=== PATIENT | male | born 1995 | race Caucasian/White ===

== ENCOUNTER 2017-12-24 03:26 | Inpatient (IN) | payer MEDICAID ==
[2017-12-24 03:40] LABS: PLATELET COUNT 221 10^3/uL (150-400)
[2017-12-24] MEDS ORDERED: IOPAMIDOL (ISOVUE-300) 100 ML BTL ONE (03:42)
[2017-12-24 03:48] LABS: INR 1.19 (0.83-1.16); PROTIME(PATIENT) 15.3 SEC (12.0-15.0)
--- NOTE | 2017-12-24 04:11 | EDPHY ---
H & P Stated Complaint: CODE Time Seen by Provider: 12/24/17 03:35 HPI/ROS: HPI The patient presents with cardiac arrest, [facility]. He was picked up in a police Paddy wagon for alcohol intoxication. He was at the arc for about 5 min and then at a cardiac arrest. CPR was started in the field by [facility] staff. His initial rhythm was a sinus tachycardia. He required epinephrine x2 and Narcan x2. He was intubated with an 8 0 ET 2 and eventually had return of spontaneous circulation with tachycardia and normal blood pressure. He reportedly did not have any seizure, vomiting. REVIEW OF SYSTEMS Unable to obtain PMHx: Unable to obtain given patient acuity Soc Hx: Unable to obtain, concern for alcohol use tonight PHYSICAL General Appearance: Intubated with no purposeful movements Eyes: Pupils midline and nonreactive ENT, Mouth: Mucous membranes moist Respiratory: Breath sounds present when bagged Cardiovascular: Tachycardic rate and normal rhythm Gastrointestinal: Abdomen is soft and non-tender, no masses, bowel sounds normal Neurological: He occasionally takes a breath, he does not move his extremities , he is not rigid Skin: Warm and dry, some abrasions on his knees, Band-Aids on both of his nipples Musculoskeletal: C-collar in place Extremities: symmetrical Source: EMS Exam Limitations: Clinical condition, Physical impairment - Personal History Current Tetanus Diphtheria and Acellular Pertussis (TDAP): Unsure - Medical/Surgical History Hx Asthma: No Hx Chronic Respiratory Disease: No Hx Diabetes: No Hx Cardiac Disease: No Hx Renal Disease: No Hx Cirrhosis: No Hx Alcoholism: No Hx HIV/AIDS: No Hx Splenectomy or Spleen Trauma: No Other PMH: none - Social History Smoking Status: Current every day smoker Constitutional: Initial Vital Signs Heart Rate 107 H 12/24/17 03:26 Respiratory Rate 12 12/24/17 03:26 Blood Pressure 136/86 H 12/24/17 03:26 O2 Sat (%) 100 12/24/17 03:26 O2 Delivery Mode Ventilator O2 (L/minute) 36.4 Allergies/Adverse Reactions: bees Allergy (Intermediate, Uncoded 12/24/17 03:46) swelling Home Medications: Medication Instructions Recorded Cephalexin [Keflex (RX)] 500 mg PO QID 5 Days cap 12/18/15 Hydrocodone/APAP 5/325 [Anderson 1 - 2 tab PO Q4H PRN #10 tab 04/18/16 5/325] Ibuprofen [Motrin (*)] 800 mg PO Q6-8PRN #30 tab 04/18/16 Ondansetron HCl [Zofran] 4 mg PO Q4-6PRN PRN #10 tablet 04/18/16 Medical Decision Making - Diagnostics EKG Interpretation: EKG: Complete interpretation has been separately recorded in the [facility] archive. Summary impression: Normal sinus rhythm, early repol pattern Imaging Results: Chest x-ray single view shows ET tube in good position, no pneumothorax, no effusion, no cardiomegaly, interpreted by me, radiology interpretation is pending. CT head and C-spine without contrast show no acute injuries. CT chest abdomen pelvis with IV contrast demonstrates multifocal airspace consolidation likely aspiration, discussed with Dr. Robb of Radiology. Imaging: I viewed and interpreted images myself Procedures: CENTRAL LINE WITH US GUIDANCE Procedure: Ultrasound guidance. Using the linear probe covered in a sterile sheath, a short axis of the vein was obtained. The vein was completely compressible and was identified as separate from the adjacent non-compressible arterial structure. Under real- time guidance, the introducer needle was observed up to the vein, and then punctured it. Indication: Hypothermia protocol. Risks, benefits, alternatives were not discussed with the patient including but not limited to bleeding, infection, vascular injury, and collapsed lung and consent obtained because of his critical condition. A timeout was observed. Full maximal sterile barrier technique was used including cap, gown, sterile gloves, large sheet, hand washing and chlorhexidine prep. The area was anesthetized with 1% lidocaine. A sole catheter was placed in the right femoral vein using standard Seldinger technique. There were no complications. Blood return low pressure, dark blood. Patient tolerated procedure well. . Xray was interpreted by myself. The procedure was performed by myself. Differential Diagnosis: 22-year-old male brought in by ambulance emergently from the [facility] [place] for cardiac arrest. Initial rhythm is PEA with a narrow past rhythm. The patient responded to epinephrine, Narcan, intubation and CP R. He arrives with return of spontaneous circulation by paramedics. He had minimal down time given CPR was started in the field. It seems that he was intoxicated and picked up by the police and then quickly decompensated without any obvious trauma. In the emergency department, ET tube was confirmed with chest x-ray, IV line was established. I-STAT was performed and did show mild hypokalemia and he was given additional potassium. I placed a femoral line for hypothermia protocol. Anderson was placed. Bedside ultrasound was performed with no evidence of pericardial effusion or significant right heart strain. Patient's imaging studies were unremarkable. The cause of his arrest is not entirely clear. He does have an elevated alcohol level and urine toxicology positive for amphetamines. This could be part of his presentation. I have discussed the case with Dr. Chacon and we will admit him to the ICU. Critical Care Time: CRITICAL CARE Critical care time spent by me, Dr. Ac, exclusively with this patient was 75 minutes, exclusive of PA time and exclusive of procedures. The organ system at risk was cardiac, neuro and I gave IV fluids, sedation, central line placement, cooling protocol, emergently transfer the patient to the ICU to prevent worsening of the patients condition. - Data Points Laboratory Results: Laboratory Results 12/24/17 03:11 12/24/17 03:11 12/24/17 12/24/17 12/24/17 04:31 04:22 03:31 WBC RBC Hgb POC Hgb Hct POC Hct MCV MCH MCHC RDW Plt Count MPV Neut % (Auto) Lymph % (Auto) Nolan % (Auto) Eos % (Auto) Baso % (Auto) Nucleat RBC Rel Count Absolute Neuts (auto) Absolute Lymphs (auto) Absolute Monos (auto) Absolute Eos (auto) Absolute Basos (auto) Absolute Nucleated RBC Immature Gran % Seg Neutrophils % Band Neutrophils % Lymphocytes % Monocytes % Eosinophils % Basophils % Metamyelocytes % Myelocytes % Promyelocytes % Blast Cells % Immature Gran # Absolute Seg Neuts Absolute Band Neuts Absolute Lymphocytes Absolute Monocytes Absolute Eosinophils Absolute Basophils Absolute Metamyelocyte Absolute Myelocytes Absolute Promyelocytes Absolute Plasma Cells Nucleated RBCs Atypical Lymphocytes Absolute Blast Cells Plasma Cells % Platelet Estimate Smear Review By PT INR APTT D-Dimer Puncture Site NONE GIVEN Patient Temperature 36.7 DEGREES DEGREES pCO2 33 mmHg L mmHg (34-38) pO2 307 mmHg H mmHg (65-75) Total CO2 14 mEq/L L mEq/L (23-27) ABG pH 7.22 L (7.35-7.45) ABG PO2/FiO2 Ratio 380 RATIO RATIO ABG HCO3 13 mEq/L L mEq/L (22-26) ABG O2 Saturation 99 % H % (92-95) ABG Base Excess -13.8 mEq/L L mEq/L (-2.5-2.5) O2 Concentration % 80 % % (0-100) Actual Respiration Rate 12 SIMV YES Tidal Volume 400 End Tidal CO2 24 PEEP 5 Pressure Support 7 POC Sodium Sodium POC Potassium Potassium POC Chloride Chloride Carbon Dioxide Anion Gap POC BUN BUN Creatinine POC Creatinine Estimated GFR Glucose POC Glucose Calcium Phosphorus Total Bilirubin Icterus Index AST Lactate Dehydrogenase CK-MB (CK-2) Fraction POC Troponin I 0.00 ng/mL ng/mL (0.00-0.08) Albumin Urine Opiates Screen NEGATIVE (NEGATIVE) Urine Barbiturates NEGATIVE (NEGATIVE) Ur Phencyclidine Scrn NEGATIVE (NEGATIVE) Ur Amphetamine Screen NON-NEGATIVE H (NEGATIVE) U Benzodiazepines Scrn NEGATIVE (NEGATIVE) Urine Cocaine Screen NEGATIVE (NEGATIVE) U Marijuana (THC) Screen NEGATIVE (NEGATIVE) Ethyl Alcohol 12/24/17 12/24/17 12/24/17 03:31 03:11 03:11 WBC RBC Hgb POC Hgb 17.3 gm/dL gm/dL (13.7-17.5) Hct POC Hct 51 % % (40-51) MCV MCH MCHC RDW Plt Count MPV Neut % (Auto) Lymph % (Auto) Nolan % (Auto) Eos % (Auto) Baso % (Auto) Nucleat RBC Rel Count Absolute Neuts (auto) Absolute Lymphs (auto) Absolute Monos (auto) Absolute Eos (auto) Absolute Basos (auto) Absolute Nucleated RBC Immature Gran % Seg Neutrophils % Band Neutrophils % Lymphocytes % Monocytes % Eosinophils % Basophils % Metamyelocytes % Myelocytes % Promyelocytes % Blast Cells % Immature Gran # Absolute Seg Neuts Absolute Band Neuts Absolute Lymphocytes Absolute Monocytes Absolute Eosinophils Absolute Basophils Absolute Metamyelocyte Absolute Myelocytes Absolute Promyelocytes Absolute Plasma Cells Nucleated RBCs Atypical Lymphocytes Absolute Blast Cells Plasma Cells % Platelet Estimate Smear Review By PT 15.3 SEC H SEC (12.0-15.0) INR 1.19 H (0.83-1.16) APTT 32.6 SEC SEC (23.0-38.0) D-Dimer 0.65 ug/mLFEU H ug/mLFEU (0.00-0.50) Puncture Site Patient Temperature pCO2 pO2 Total CO2 ABG pH ABG PO2/FiO2 Ratio ABG HCO3 ABG O2 Saturation ABG Base Excess O2 Concentration % Actual Respiration Rate SIMV Tidal Volume End Tidal CO2 PEEP Pressure Support POC Sodium 144 mEq/L mEq/L (135-145) Sodium 144 mEq/L mEq/L (135-145) POC Potassium 2.4 mEq/L L* mEq/L (3.3-5.0) Potassium 3.0 mEq/L L mEq/L (3.3-5.0) POC Chloride 104 mEq/L mEq/L (97-110) Chloride 107 mEq/L mEq/L (97-110) Carbon Dioxide 18 mEq/l L mEq/l (22-31) Anion Gap 19 mEq/L H mEq/L (8-16) POC BUN 12 mg/dL mg/dL (7-23) BUN 13 mg/dL mg/dL (7-23) Creatinine 1.4 mg/dL H mg/dL (0.7-1.3) POC Creatinine 1.7 mg/dL H mg/dL (0.7-1.3) Estimated GFR > 60 Glucose 298 mg/dL H mg/dL (70-100) POC Glucose 312 mg/dL H mg/dL (70-100) Calcium 8.1 mg/dL L mg/dL (8.5-10.4) Phosphorus 8.9 mg/dL H mg/dL (2.5-4.5) Total Bilirubin Cancelled Icterus Index Cancelled AST Cancelled Lactate Dehydrogenase Cancelled CK-MB (CK-2) Fraction 2.96 ng/mL ng/mL (0.00-4.55) POC Troponin I Albumin Cancelled Urine Opiates Screen Urine Barbiturates Ur Phencyclidine Scrn Ur Amphetamine Screen U Benzodiazepines Scrn Urine Cocaine Screen U Marijuana (THC) Screen Ethyl Alcohol 352 mg/dL H mg/dL (0-10) 12/24/17 03:11 WBC 9.25 10^3/uL 10^3/uL (3.80-9.50) RBC 5.35 10^6/uL 10^6/uL (4.40-6.38) Hgb 16.3 g/dL g/dL (13.7-17.5) POC Hgb Hct 49.5 % % (40.0-51.0) POC Hct MCV 92.5 fL fL (81.5-99.8) MCH 30.5 pg pg (27.9-34.1) MCHC 32.9 g/dL g/dL (32.4-36.7) RDW 11.8 % % (11.5-15.2) Plt Count 221 10^3/uL 10^3/uL (150-400) MPV 10.9 fL fL (8.7-11.7) Neut % (Auto) Not Reported Lymph % (Auto) Not Reported Nolan % (Auto) Not Reported Eos % (Auto) Not Reported Baso % (Auto) Not Reported Nucleat RBC Rel Count Not Reported Absolute Neuts (auto) Not Reported Absolute Lymphs (auto) Not Reported Absolute Monos (auto) Not Reported Absolute Eos (auto) Not Reported Absolute Basos (auto) Not Reported Absolute Nucleated RBC Not Reported Immature Gran % Not Reported Seg Neutrophils % 21.0 % % Band Neutrophils % 2.0 % % Lymphocytes % 68.0 % % Monocytes % 4.0 % % Eosinophils % 0.0 % % Basophils % 2.0 % % Metamyelocytes % 3.0 % % Myelocytes % 0.0 % % Promyelocytes % 0.0 % % Blast Cells % 0.0 % % Immature Gran # Not Reported Absolute Seg Neuts 1.94 10^/uL 10^/uL (1.70-6.50) Absolute Band Neuts 0.19 10^3/uL 10^3/uL (0.00-0.70) Absolute Lymphocytes 6.29 10^3/uL H 10^3/uL (1.00-3.00) Absolute Monocytes 0.37 10^3/uL 10^3/uL (0.30-0.80) Absolute Eosinophils 0.00 10^3/uL L 10^3/uL (0.03-0.40) Absolute Basophils 0.19 10^3/uL H 10^3/uL (0.02-0.10) Absolute Metamyelocyte 0.28 10^3/mL H 10^3/mL (0.00-0.00) Absolute Myelocytes 0.00 10^3/mL 10^3/mL (0.00-0.00) Absolute Promyelocytes 0.00 10^3/uL 10^3/uL (0.00-0.00) Absolute Plasma Cells 0.00 10^3/uL 10^3/uL (0.00-0.00) Nucleated RBCs 0 /100 WBC /100 WBC (0-0) Atypical Lymphocytes 1+ H Absolute Blast Cells 0.00 10^3/uL 10^3/uL (0.00-0.00) Plasma Cells % 0.0 % % Platelet Estimate ADEQUATE (ADEQ) Smear Review By Pending PT INR APTT D-Dimer Puncture Site Patient Temperature pCO2 pO2 Total CO2 ABG pH ABG PO2/FiO2 Ratio ABG HCO3 ABG O2 Saturation ABG Base Excess O2 Concentration % Actual Respiration Rate SIMV Tidal Volume End Tidal CO2 PEEP Pressure Support POC Sodium Sodium POC Potassium Potassium POC Chloride Chloride Carbon Dioxide Anion Gap POC BUN BUN Creatinine POC Creatinine Estimated GFR Glucose POC Glucose Calcium Phosphorus Total Bilirubin Icterus Index AST Lactate Dehydrogenase CK-MB (CK-2) Fraction POC Troponin I Albumin Urine Opiates Screen Urine Barbiturates Ur Phencyclidine Scrn Ur Amphetamine Screen U Benzodiazepines Scrn Urine Cocaine Screen U Marijuana (THC) Screen Ethyl Alcohol Medications Given: Potassium Chloride/Sodium Chloride (Ns W/ 20 Kcl/L) 1,000 mls @ 100 mls/hr IV CONT TAWNY Stop: 06/22/18 04:59 Last Admin: 12/24/17 06:18 Dose: 1,000 mls Discontinued Medications Epinephrine HCl (Epinephrine) 1 mg IVP EDNOW ONE Stop: 12/24/17 04:34 Last Admin: 12/24/17 04:53 Dose: Not Given Fentanyl (Sublimaze) 100 mcg IVP EDNOW ONE Stop: 12/24/17 04:26 Last Admin: 12/24/17 04:30 Dose: 100 mcg Fentanyl/Sodium Chloride (Fentanyl 10 Mcg/Ml (Premix)) 100 mls @ 0 mls/hr IV CONT TAWNY; As Directed PRN Reason: Protocol Stop: 01/03/18 04:29 Last Admin: 12/24/17 04:30 Dose: 100 mls Propofol (Diprivan 10 Mg/Ml (Premix)) 100 mls @ 0 mls/hr IV CONT TAWNY; Titrate PRN Reason: Protocol Stop: 06/22/18 04:29 Last Admin: 12/24/17 03:40 Dose: 100 mls Potassium Chloride (Potassium Cl 10 Meq (Premix)) 100 mls @ 100 mls/hr IV EDNOW ONE Stop: 12/24/17 05:37 Last Admin: 12/24/17 04:51 Dose: 100 mls Sodium Chloride (Ns) 1,000 mls @ 0 mls/hr IV ONCE ONE; Wide Open PRN Reason: Protocol Stop: 12/24/17 05:58 Last Admin: 12/24/17 03:26 Dose: 1,000 mls Sodium Chloride (Ns) 1,000 mls @ 0 mls/hr IV ONCE ONE; Wide Open PRN Reason: Protocol Stop: 12/24/17 05:58 Last Admin: 12/24/17 03:45 Dose: 1,000 mls Naloxone HCl (Narcan) 0.4 mg IVP EDNOW ONE Stop: 12/24/17 04:34 Last Admin: 12/24/17 04:53 Dose: Not Given Point of Care Test Results: Chemistry 12/24/17 12/24/17 03:31 03:31 POC Sodium 144 mEq/L mEq/L (135-145) POC Potassium 2.4 mEq/L L* mEq/L (3.3-5.0) POC Chloride 104 mEq/L mEq/L (97-110) POC BUN 12 mg/dL mg/dL (7-23) POC Creatinine 1.7 mg/dL H mg/dL (0.7-1.3) POC Glucose 312 mg/dL H mg/dL (70-100) POC Troponin I 0.00 ng/mL ng/mL (0.00-0.08) Blood Gas/Lactic Acid-Arterial 12/24/17 04:31 Tidal Volume 400 ISTAT H&H 12/24/17 03:31 POC Hgb 17.3 gm/dL gm/dL (13.7-17.5) POC Hct 51 % % (40-51) Departure - Departure Disposition: [facility] Acute Clinical Impression: Cardiac arrest, Hypokalemia Alcohol intoxication Qualifiers: Complication of substance-induced condition: with delirium Qualified Code(s): F10.921 - Alcohol use, unspecified with intoxication delirium Condition: Critical
[2017-12-24] MEDS ORDERED: fentaNYL 100 MCG/2 ML INJ IVP ONE ×2 (04:25→06:30)
[2017-12-24] MEDS ORDERED: fentaNYL/NACL 100 ML IV SCH ×2 (04:30→05:00)
[2017-12-24] MEDS ORDERED: PROPOFOL/EMULSION 100 ML IV SCH ×2 (04:30→05:00)
[2017-12-24] MEDS ORDERED: EPINEPHrine 1 MG/10 ML SYR IVP ONE ×2 (04:33→05:57)
[2017-12-24] MEDS ORDERED: NALOXONE HCL 0.4 MG/ML INJ IVP ONE (04:33)
[2017-12-24] MEDS ORDERED: POTASSIUM Cl (KCl) 100 ML IV ONE (04:38)
[2017-12-24] MEDS ORDERED: ACETAMINOPHEN 325 MG TAB PO PRN (04:56)
[2017-12-24] MEDS ORDERED: ONDANSETRON DISINTEGRATING 4 MG TAB PO PRN (04:56)
[2017-12-24] MEDS ORDERED: ONDANSETRON 4 MG/2 ML VIAL IVP PRN (04:56)
[2017-12-24] MEDS ORDERED: NS W/ 20 KCl/L 1,000 ML IV SCH (05:00)
[2017-12-24] MEDS ORDERED: PROTOCOL POTASSIUM 1 DOSE MISC PRN (05:01)
[2017-12-24] MEDS ORDERED: PROTOCOL MAGNESIUM 1 DOSE IV PRN (05:01)
--- NOTE | 2017-12-24 05:54 | PDGENHP ---
History and Physical - Chief Complaint Cardiac arrest - History of Present Illness 22 yo M w/ hx of ETOH abuse presents after cardiac arrest. Patient was brought in from [facility]. He was picked up by police for alcohol intoxication. He arrived at the [facility] and shortly therafter suffered a cardiac arrest. CPR was started in [facility] field. Rhythm was reported as PEa. He received epinephrine x2 and Narcan x2. He was intubated upon arrival in the ED. At the time of my evaluation the patient is intubated. Per report from ED staff he has been minimally responsive to stimuli since his arrival. Trauma evaluation was negative. There is no one with the patient currently to provide additional collateral information. Case discussed with ED physician Dr. Ac. History Information - Allergies/Home Medication List Allergies/Adverse Reactions: bees Allergy (Intermediate, Uncoded 12/24/17 03:46) swelling I have personally reviewed and updated: family history, medical history - Past Medical History no pertinent PMH - Surgical History Reports: no pertinent surgical hx - Family History Additional family history: Unable to obtain 2/2 mental status - Social History Smoking Status: Current every day smoker Review of Systems Review of Systems: Unable to obtain 2/2 mental status Physical Exam Physical Exam: Temp Pulse Resp BP Pulse Ox 33.6 C L 86 14 115/76 99 12/24/17 05:00 12/24/17 05:00 12/24/17 05:00 12/24/17 05:00 12/24/17 05:00 Constitutional: appears nourished, other (Intubated, sedated) Eyes: anicteric sclera, other (Pinpoint pupils) Ears, Nose, Mouth, Throat: moist mucous membranes, no oral mucosal ulcers Cardiovascular: no murmur, rub, or gallop, tachycardia Respiratory: no respiratory distress, other (Mechanical breath sounds) Gastrointestinal: normoactive bowel sounds, No distension Skin: warm, normal color Neurologic: other (Intubated, sedated) Lab Data & Imaging Review 12/24/17 03:11 12/24/17 03:11 WBC 9.25 10^3/uL (3.80-9.50) 12/24/17 03:11 RBC 5.35 10^6/uL (4.40-6.38) 12/24/17 03:11 Hgb 16.3 g/dL (13.7-17.5) 12/24/17 03:11 POC Hgb 17.3 gm/dL (13.7-17.5) 12/24/17 03:31 Hct 49.5 % (40.0-51.0) 12/24/17 03:11 POC Hct 51 % (40-51) 12/24/17 03:31 MCV 92.5 fL (81.5-99.8) 12/24/17 03:11 MCH 30.5 pg (27.9-34.1) 12/24/17 03:11 MCHC 32.9 g/dL (32.4-36.7) 12/24/17 03:11 RDW 11.8 % (11.5-15.2) 12/24/17 03:11 Plt Count 221 10^3/uL (150-400) 12/24/17 03:11 MPV 10.9 fL (8.7-11.7) 12/24/17 03:11 Neut % (Auto) Not Reported 12/24/17 03:11 Lymph % (Auto) Not Reported 12/24/17 03:11 [place] % (Auto) Not Reported 12/24/17 03:11 Eos % (Auto) Not Reported 12/24/17 03:11 Baso % (Auto) Not Reported 12/24/17 03:11 Nucleat RBC Rel Count Not Reported 12/24/17 03:11 Absolute Neuts (auto) Not Reported 12/24/17 03:11 Absolute Lymphs (auto) Not Reported 12/24/17 03:11 Absolute Monos (auto) Not Reported 12/24/17 03:11 Absolute Eos (auto) Not Reported 12/24/17 03:11 Absolute Basos (auto) Not Reported 12/24/17 03:11 Absolute Nucleated RBC Not Reported 12/24/17 03:11 Immature Gran % Not Reported 12/24/17 03:11 Seg Neutrophils % 21.0 % 12/24/17 03:11 Band Neutrophils % 2.0 % 12/24/17 03:11 Lymphocytes % 68.0 % 12/24/17 03:11 Monocytes % 4.0 % 12/24/17 03:11 Eosinophils % 0.0 % 12/24/17 03:11 Basophils % 2.0 % 12/24/17 03:11 Metamyelocytes % 3.0 % 12/24/17 03:11 Myelocytes % 0.0 % 12/24/17 03:11 Promyelocytes % 0.0 % 12/24/17 03:11 Blast Cells % 0.0 % 12/24/17 03:11 Immature Gran # Not Reported 12/24/17 03:11 Absolute Seg Neuts 1.94 10^/uL (1.70-6.50) 12/24/17 03:11 Absolute Band Neuts 0.19 10^3/uL (0.00-0.70) 12/24/17 03:11 Absolute Lymphocytes 6.29 10^3/uL (1.00-3.00) H 12/24/17 03:11 Absolute Monocytes 0.37 10^3/uL (0.30-0.80) 12/24/17 03:11 Absolute Eosinophils 0.00 10^3/uL (0.03-0.40) L 12/24/17 03:11 Absolute Basophils 0.19 10^3/uL (0.02-0.10) H 12/24/17 03:11 Absolute Metamyelocyte 0.28 10^3/mL (0.00-0.00) H 12/24/17 03:11 Absolute Myelocytes 0.00 10^3/mL (0.00-0.00) 12/24/17 03:11 Absolute Promyelocytes 0.00 10^3/uL (0.00-0.00) 12/24/17 03:11 Absolute Plasma Cells 0.00 10^3/uL (0.00-0.00) 12/24/17 03:11 Nucleated RBCs 0 /100 WBC (0-0) 12/24/17 03:11 Atypical Lymphocytes 1+ H 12/24/17 03:11 Absolute Blast Cells 0.00 10^3/uL (0.00-0.00) 12/24/17 03:11 Plasma Cells % 0.0 % 12/24/17 03:11 Platelet Estimate ADEQUATE (ADEQ) 12/24/17 03:11 PT 15.3 SEC (12.0-15.0) H 12/24/17 03:11 INR 1.19 (0.83-1.16) H 12/24/17 03:11 APTT 32.6 SEC (23.0-38.0) 12/24/17 03:11 D-Dimer 0.65 ug/mLFEU (0.00-0.50) H 12/24/17 03:11 Puncture Site NONE GIVEN 12/24/17 04:31 Patient Temperature 36.7 DEGREES 12/24/17 04:31 pCO2 33 mmHg (34-38) L 12/24/17 04:31 pO2 307 mmHg (65-75) H 12/24/17 04:31 Total CO2 14 mEq/L (23-27) L 12/24/17 04:31 ABG pH 7.22 (7.35-7.45) L 12/24/17 04:31 ABG PO2/FiO2 Ratio 380 RATIO 12/24/17 04:31 ABG HCO3 13 mEq/L (22-26) L 12/24/17 04:31 ABG O2 Saturation 99 % (92-95) H 12/24/17 04:31 ABG Base Excess -13.8 mEq/L (-2.5-2.5) L 12/24/17 04:31 O2 Concentration % 80 % (0-100) 12/24/17 04:31 Actual Respiration Rate 12 12/24/17 04:31 SIMV YES 12/24/17 04:31 Tidal Volume 400 12/24/17 04:31 End Tidal CO2 24 12/24/17 04:31 PEEP 5 12/24/17 04:31 Pressure Support 7 12/24/17 04:31 POC Sodium 144 mEq/L (135-145) 12/24/17 03:31 Sodium 144 mEq/L (135-145) 12/24/17 03:11 POC Potassium 2.4 mEq/L (3.3-5.0) L* 12/24/17 03:31 Potassium 3.0 mEq/L (3.3-5.0) L 12/24/17 03:11 POC Chloride 104 mEq/L (97-110) 12/24/17 03:31 Chloride 107 mEq/L (97-110) 12/24/17 03:11 Carbon Dioxide 18 mEq/l (22-31) L 12/24/17 03:11 Anion Gap 19 mEq/L (8-16) H 12/24/17 03:11 POC BUN 12 mg/dL (7-23) 12/24/17 03:31 BUN 13 mg/dL (7-23) 12/24/17 03:11 Creatinine 1.4 mg/dL (0.7-1.3) H 12/24/17 03:11 POC Creatinine 1.7 mg/dL (0.7-1.3) H 12/24/17 03:31 Estimated GFR > 60 12/24/17 03:11 Glucose 298 mg/dL (70-100) H 12/24/17 03:11 POC Glucose 312 mg/dL (70-100) H 12/24/17 03:31 Calcium 8.1 mg/dL (8.5-10.4) L 12/24/17 03:11 Phosphorus 8.9 mg/dL (2.5-4.5) H 12/24/17 03:11 Magnesium 3.0 mg/dL (1.6-2.3) H 12/24/17 Unknown Total Bilirubin Cancelled 12/24/17 03:11 Icterus Index Cancelled 12/24/17 03:11 AST Cancelled 12/24/17 03:11 Lactate Dehydrogenase Cancelled 12/24/17 03:11 CK-MB (CK-2) Fraction 2.96 ng/mL (0.00-4.55) 12/24/17 03:11 POC Troponin I 0.00 ng/mL (0.00-0.08) 12/24/17 03:31 Troponin I < 0.012 ng/mL (0.000-0.034) 12/24/17 Unknown Albumin Cancelled 12/24/17 03:11 Urine Opiates Screen NEGATIVE (NEGATIVE) 12/24/17 04:22 Urine Barbiturates NEGATIVE (NEGATIVE) 12/24/17 04:22 Ur Phencyclidine Scrn NEGATIVE (NEGATIVE) 12/24/17 04:22 Ur Amphetamine Screen NON-NEGATIVE (NEGATIVE) H 12/24/17 04:22 U Benzodiazepines Scrn NEGATIVE (NEGATIVE) 12/24/17 04:22 Urine Cocaine Screen NEGATIVE (NEGATIVE) 12/24/17 04:22 U Marijuana (THC) Screen NEGATIVE (NEGATIVE) 12/24/17 04:22 Ethyl Alcohol 352 mg/dL (0-10) H 12/24/17 03:11 Imaging Review: prelim CT CHEST ABD PEL 1. Multifocal airspace consolidation likely aspiration 2. No fxs 3. Good ETT tube, OGT tube, and RT femoral line placement 4. No acute aortic injury 5. No solid organ or bowel injury 6. Features of aggressive IV hydration prelim C spine Neg. Good alignment. No fx d/w Dr. Ac at 4:45 am prelim HEAD 1. Min depressed likely subacute or old rt zygomatic arch fx 2. No acute skull or facial fracture 3. No bleed or swelling 4. preserved GW. No global anoxic injury d/w Dr. Ac at 4:45 am Visualized and Interpreted EKG results: Yes EKG Interpretation: Positive for: normal sinsus rhythm Assessment & Plan Assessment: 22 yo M w/ hx of ETOH abuse presents with cardiac arrest of unclear etiology. Plan: 1. Cardiac arrest - Unclear etiology; most likely explanation is multifactorial etiology from ETOH intoxication, amphetamine use (Utox positive), and hypokalemia. CT Chest also shows evidence of aspiration so this may have contributed as well. - Admit to ICU - Will initiate HACA protocol noting minimally responsive after cardiac arrest - Continue intubation, sedation per protocol - Trend cardiac enzymes, monitor on telemetry, obtain TTE - Ventilator care order set placed 2. AGMA - I suspect this is related to lactic acidosis from arrest. - S/p 2 L IVF, continue mIVF - Trend BMP, repeat at 10:00 3. Hypokalemia - K protocol ordered 4. Hyperglycemia - Unclear if patient has hx of diabetes as he is unable to provide history. - Monitor BG ACHS - Start insulin if persistently hyperglycemic 5. ALEXANDRU - Cr 1.4 on admission, suspect pre-renal; trend BMP after IVF. Diet - NPO Code - Full Ppx - SCDs Dispo - Admit under inpatient status I personally spent 60 minutes of critical care time evaluating patient, interpreting data, and coordinating care.
[2017-12-24] MEDS ORDERED: NALOXONE HCL 2 MG/2 ML SYR IVP ONE (05:57)
[2017-12-24] MEDS ORDERED: NS 1,000 ML IV ONE ×3 (05:57→06:30)
[2017-12-24] MEDS ORDERED: MIDAZOLAM HCL 50 MG in D5W 50 ML IV PRN (06:30)
[2017-12-24] MEDS ORDERED: niCARdipine/NACL 200 ML IV PRN (06:30)
[2017-12-24] MEDS ORDERED: NS 1,000 ML IV SCH (06:30)
[2017-12-24] MEDS ORDERED: NS 250 ML IV PRN (06:30)
[2017-12-24] MEDS ORDERED: RN MUST ADD K & MAG PROT TO WORKLIST MISC ONE (06:30)
[2017-12-24] MEDS ORDERED: MIDAZOLAM 2 MG/2 ML VIAL IVP PRN (06:30)
[2017-12-24] MEDS ORDERED: NOREPINEPHRINE 4MG/NS 500 ML IV PRN (06:30)
--- NOTE | 2017-12-24 07:13 | CPEKG ---
Test Reason : OPEN Blood Pressure : / mmHG Vent. Rate : 113 BPM Atrial Rate : 113 BPM P-R Int : 134 ms QRS Dur : 103 ms QT Int : 350 ms P-R-T Axes : 083 090 072 degrees QTc Int : 480 ms Sinus tachycardia Borderline right axis deviation ST elev, probable normal early repol pattern Borderline prolonged QT interval Confirmed by Vivi Ac ([id number]) on 12/24/2017 7:13:31 AM Referred By: Confirmed By:Vivi Ac
[2017-12-24] MEDS: FAMOTIDINE 20 MG/NACL 50 ML IV SCH ×2 (08:40→20:18)
[2017-12-24] MEDS: CHLORHEXIDINE GLUCONATE 15 ML UDL PO SCH ×2 (08:40→20:49)
[2017-12-24] MEDS: PROPOFOL/EMULSION 100 ML IV SCH ×4 (08:44→21:08)
--- NOTE | 2017-12-24 08:55 | PDMN ---
Medical Necessity Medical necessity: [facility] Cardiology GR22 y/o in cardiac arrest, unclear etiology, most likely etoh intoxication, amphetamine use and hypokalemia, HACA protocol initiated. Pt is intubated on vent and on sedation protocol.
[2017-12-24] MEDS: SODIUM BICARBONATE 150 MEQ in D5W 1,000 ML IV SCH ×2 (10:00→16:52)
--- NOTE | 2017-12-24 12:20 | ECHO ---
[email or web address] [address] [address] Main: [phone] Fax: Transthoracic Echocardiogram Name: ILIA HERNANDEZ MR#: [id number] Study Date: 12/24/2017 Study Time: 09:20 AM Date of : 1995 Age: 22 year(s) Height: 182.9 cm (72 in.) Weight: 79.83 kg (176 lb.) BSA: 2.02 m2 Gender: Male Examination: Echo Indication: s/p cardiac arrest; HACA Image Quality: Technically Difficult Contrast: Requested by: Tio Arroyo BP: 101 mmHg/65 mmHg Heart Rate: Rhythm: Indication: s/p cardiac arrest; HACA Procedure Staff Parking Worker: Yadi Miles [facility] Reading Physician: Huang Woods MD Requesting Provider: Conclusions: EF is 23 %. Global hypokinesis more pronounced in the mid anteroseptal and inferoseptal montes. Mildly to moderately reduced right ventricular function. There is no mitral valve regurgitation. Aortic valve is not well visualized. There is no aortic valve regurgitation. No aortic valve stenosis is present. Trivial tricuspid valve regurgitation. Pulmonary artery pressure is not obtained due to inadequate TR jet. There is no previous echocardiogram for comparison. Measurements: Chambers Valvular Assessment AV/MV Valvular Assessment TV/PV Normal Normal Normal Name Value Range Name Value Range Name Value Range IVSd (2D): 1.1 cm (0.6 cm-1.1 AV Vmax: 0.62 m/s (1 m/s-1.7 cm) m/s) LVDd (2D): 4.2 cm (4.2 cm-5.9 AV maxP mmHg ( - ) cm) LVOT Vmax: 0.54 m/s (0.7 m/s-1.1 LVDs (2D): 3.3 cm (2.1 cm-4 m/s) cm) MV E Vmax: 0.48 m/s ( - ) LVPWd (2D): 1.0 cm (0.6 cm-1 MV A Vmax: 0.42 m/s ( - ) cm) MV E/A: 1.14 ( - ) LVEF (MOD4): 23 % (>=55 %) RVDd(2D): 3.2 cm (1.9 cm-3.8 cmmm) Continued Measurements: Chambers Valvular Assessment AV/MV Patient: ILIA HERNANDEZ Study Date: 12/24/2017 Page 1 of 2 09:20 AM Name Value Name Value LADs Lon.2 cm MV DecTime: 183 m/s LA Area: 11.9 cm2 MV E' Septal: 0.07 m/s LA Volume: 23 ml MV E/E' Septal: 6.80 LA Volume Index: 11.4 ml/m2 TAPSE: 1.3 cm Findings: Left Ventricle: Normal size left ventricle. Moderately to severely reduced systolic function. EF is 23 %. Global hypokinesis more pronounced in the mid anteroseptal and inferoseptal montes. Right Ventricle: Normal size right ventricle. Mildly to moderately reduced right ventricular function. Left Atrium: The left atrium is normal in size. Right Atrium: The right atrium is normal in size. Mitral Valve: The mitral valve is normal in appearance and function. There is no mitral valve regurgitation. No mitral stenosis is present. Aortic Valve: Aortic valve is not well visualized. There is no aortic valve regurgitation. No aortic valve stenosis is present. Tricuspid Valve: The tricuspid valve is normal in appearance and function. Trivial tricuspid valve regurgitation. Pulmonary artery pressure is not obtained due to inadequate TR jet. Pulmonic Valve: Pulmonary valve not well visualized. IVC: Line in the IVC. Pericardium: No pericardial effusion. (No Signature Object) Patient: ILIA HERNANDEZ Study Date: 12/24/2017 Page 2 of 2 09:20 AM [id number]
[2017-12-24] MEDS ORDERED: D5W 1,000 ML IV SCH (12:30)
[2017-12-24] MEDS ORDERED: INSULIN REGULAR HUMAN 100 UNIT in NS 100 ML IV SCH (12:30)
[2017-12-24] MEDS: levETIRAcetam 750 MG in NS 100 ML IV SCH ×2 (13:34→20:42)
--- NOTE | 2017-12-24 14:18 | GCON ---
CRITICAL CARE CONSULTATION DATE OF CONSULTATION: 12/24/2017 HISTORY OF PRESENT ILLNESS: This patient is a 22-year-old male who according to family has a history of binge drinking, but no other substance abuse, who was found intoxicated by police and was being e scorted to an alcohol recovery center when he collapsed in full cardiac arrest. Bystander CPR was st arted, and he was brought to the emergency department, intubated, and return of spontaneous circulati on did occur after I believe 2 doses of epinephrine and at least 2 doses of Narcan. The rhythm was t hought to be pulseless electrical activity, but the time of CPR was not recorded. In any case, he wa s brought to the intensive care unit shortly after being stabilized and having appropriate imaging an d other workup. On arrival in the intensive care unit, he had mild intermittent myoclonus that appea red to worsen over the course of the morning despite the propofol drip. He was also started on the h ypothermia protocol. REVIEW OF SYSTEMS: Otherwise negative according to his grandmother. PAST MEDICAL HISTORY: None. PAST SURGICAL HISTORY: None. OUTPATIENT MEDICATIONS: None. PHYSICAL EXAM: VITAL SIGNS: At the time of my evaluation, he was afebrile, had a blood pressure of 105/72, with a heart rate of 60, respirations 17, oxygen saturation 100% on the ventilator. He did h ave diffuse myoclonic activity more upper extremities than lower extremities. This was evoked by his pupil exam. Pupils were 2-3 mm and nonreactive. There was no corneal reflex in either eye. He did appear to cough and trigger the vent on his own. His sclerae were nonicteric. Mucous membranes wer e moist. NECK: Supple, without adenopathy or jugular vein distention. Breath sounds were clear to auscultation bilaterally without wheezes, rubs, or rales. HEART: Regular rate and rhythm without ob vious murmur. ABDOMEN: Soft, nontender, nondistended without hepatosplenomegaly. Right femoral tri ple-lumen catheter appeared to be clean, dry, without evidence of a hematoma. EXTREMITIES: No clubb ing, cyanosis, or edema. NEUROLOGICAL: He did have the persistent myoclonus. This reading was abou t 70-80 despite propofol set to 50. There did not appear to be any focal weakness or cranial nerve d eficits. The rest of his neuro exam as noted above. SKIN: Otherwise warm and dry without evidence of rash. OBJECTIVE DATA: Includes: A chest CT showing multifocal patchy areas of consolidation in a dependen t fashion, could be consistent with aspiration. A head CT with no focal abnormalities and neck CT wi thout abnormalities. Normal looking chest x-ray and unremarkable abdominal CT scan. His white count on arrival was 9.2, hematocrit was 49, platelets of 221. His most recent arterial blood gas showed a pH 727, pCO2 of 32, PO2 of 142 with a bicarb of 15, a saturation 99%. His sodium was 145, potassiu m 5.0, chloride 114, bicarb 17, creatinine was 1.4 on admission down to 1.0 now. Glucose on admissio n was elevated at 298, now down to 103. Troponin was negative. EKG is unremarkable. ASSESSMENT AND PLAN: 1. Cardiac arrest. The etiology here is uncertain. His urine tox screen did show amphetamines, but the family reports no known history of this problem. Methamphetamine certainly could cause sudden c ardiac collapse. It is unclear if other easily obtainable amphetamines such as Adderall could also r esult in the same disorder. The fact that he is young and had a witnessed arrest with immediate byst raghu CPR is certainly positive, but the persistent and worsening myoclonus is a concerning sign as w ell as his lack of corneal reflexes. However, he is undergoing the hypothermia protocol and further assessment and prognostication obviously should wait until he is warm and will proceed from there. O therwise, at the moment we will continue with the protocol, and he appears to be hemodynamically stab le at this time. 2. Acute respiratory failure with hypoxemia, likely due to the underlying the arrest. The lack of f ever and white count at this point, makes an aspiration pneumonia less likely. He may have an aspira tion pneumonitis. His oxygen requirements now are extremely low. I think I would like to continue t o observe this for now. We will consider antibiotics should his clinical situation worsen. 3. Myoclonus. I do not believe this is seizure disorder. We do have a neurologic consult for osorio hardin. He is on a propofol drip right now, because there is some concern by the family we started low- dose Keppra at 750 mg twice daily today, and we will reassess that as time goes on. 4. Metabolic acidosis. This would fit with an amphetamine overdose, and we started him on a bicarb drip today and will monitor his pH and make appropriate changes. A total of 90 minutes of critical care time was required in the evaluation and management of this pat ient. /[id number]/MODL
[2017-12-24] MEDS ORDERED: MAGNESIUM SULF 1 GM/DEXTROSE 100 ML IV ONE ×2 (14:51→16:15)
[2017-12-24] MEDS ORDERED: MAGNESIUM SULF 1 GM/DEXTROSE 100 ML BAG IV ONE (15:08)
--- NOTE | 2017-12-24 17:34 | ASMTCMCOM ---
CM Note CM Note Notes: Patient admitted from the [facility] after ETOH W/D and Cardiac arrest. Patient was administered CPR and placed on a vent. Grandmother felt that patient was using his roommates medications and that's why he had a + meth screen. CM to follow for possible discharge needs. Date Signed: 12/24/2017 05:34 PM Electronically Signed By:Marah Sharp LCSW
[2017-12-24] MEDS ORDERED: LORazepam 2 MG/ML INJ ONE (18:14)
[2017-12-24] MEDS ORDERED: levETIRAcetam 750 MG in NS 100 ML IV ONE (18:30)
[2017-12-24] MEDS ORDERED: LORazepam 2 MG/ML INJ IVP ONE (18:30)
--- NOTE | 2017-12-24 18:45 | HOSPPROG ---
Hospitalist Progress Note Assessment/Plan: 80 min of additional critical care time spent with this patient today, both at bedside and coordinating with Dr. Bautista and Dr. Palmer, addressing the following issues (specifically cardiac arrest and anoxic brain injury) which render the patient critically ill with high risk of mortality: -the patient experienced PEA arrest most likely secondary to a combination of severe alcohol intoxication as well as amphetamine (recreational Adderall) -he subsequently experienced for cerebral blood flow, requiring CPR and then HACA protocol after return of circulation -the result was acute kidney injury, acute metabolic acidosis, acute hypokalemia , acute respiratory failure, aspiration pneumonitis, hyperglycemia, acute encephalopathy -the patient's chest imaging demonstrates multifocal areas of airspace disease, most likely secondary to aspiration, there is white blood cell count was normal on presentation and he was initially afebrile, suggesting aspiration pneumonitis as opposed to overt pneumonia -physical exam demonstrates rapid shallow breathing during these episodes with inspiratory rhonchi bilaterally as well as market tachycardia with regular rhythm but a rate of greater than 100 -given that the patient has intermittently severely tachypneic, I am concerned for a respiratory trigger and will perform chest x-ray at this time as well as CBC, and if either of these are demonstrative of worsening airspace disease or worsening leukocytosis, would recommend initiating IV Unasyn for aspiration pneumonia coverage -echocardiogram demonstrates a most likely stress induced cardiomyopathy with ejection fraction 23%, global hypokinesis, normal valves -troponin has remained negative, will recheck in a.m. -hold on cardiology consultation as the suspected cause of his PEA arrest was alcohol and amphetamine toxicity rather than obstructive coronary disease, and his echo does not demonstrate focal wall motion abnormalities which would be more suggestive of focal coronary obstruction -the patient currently is maintaining a blood pressure of 100 to 120 off of pressors -throughout the course the day the patient has had increasing frequency of myoclonic movements, mostly localizing to the left side, with physical exam demonstrating a fixed upward gaze, myoclonic movements involving the bilateral upper extremities left greater than right, face, head -discussed this with Dr. Adiel Palmer, who suggests that these are anoxic brain injury myoclonic movements and that the treatment is purely supportive to reduce the movements -that being said, given their increased frequency and temporal association with tachypnea and what appears to be respiratory distress with the patient overriding the vent, we will load him with 1.5 g of Keppra, dose 2 mg of IV Ativan, utilize IV Ativan p.r.n. Overnight, and have increased his fentanyl and propofol to symptomaticly reduce these likely myoclonic movements and also preventatively provide him with antiepileptic coverage given the potential for epileptiform activity following brain injury -I discussed the information above with both the patient's grandmother as well as the patient's mother, at bedside -he will not be transferred to a facility for continuous EEG monitoring at this time as the diagnosis is highly suggestive of anoxic brain injury myoclonus and the potential risk of transporting unstable patient on HACA far exceeds the potential risk of under treating some epileptiform activity in a patient who already has a very guarded prognosis for neurologic recovery -given the increased activity of the myoclonic movements throughout the course of today, we suspected that the patient's anoxic injury is severe and he is likely experiencing progressive neurologic cell and we would anticipate that his myoclonic movements accelerate during this process, plateau, and then decrease after the full impact of his anoxic injury has presented itself -formal neurologic consultation will be performed tomorrow after the patient has been really warmed to provide the patient's family with an impression regarding any perceived neurologic recovery Objective: Vital Signs Temp Pulse Resp BP Pulse Ox 33.1 C L 79 33 H 124/89 H 100 12/24/17 17:00 12/24/17 17:00 12/24/17 17:00 12/24/17 17:00 12/24/17 17:00 Laboratory Results 12/24/17 13:50 12/23/17 12/24/17 12/25/17 05:59 05:59 05:59 Intake Total 2000 Output Total 1200 815 Balance 800 -815 PT 15.3 SEC (12.0-15.0) H 12/24/17 03:11 INR 1.19 (0.83-1.16) H 12/24/17 03:11 ICD10 Worksheet Patient Problems: Problems Problem Status Onset Cardiac arrest Acute Alcohol intoxication Acute Hypokalemia Acute
[2017-12-24 20:35] LABS: PLATELET COUNT 146 10^3/uL (150-400)
[2017-12-24] MEDS: VECURONIUM BROMIDE 50 MG in D5W 50 ML IV SCH (20:47)
[2017-12-24 20:51] LABS: INR 1.02 (0.83-1.16); PROTIME(PATIENT) 13.6 SEC (12.0-15.0)
[2017-12-24] MEDS: POTASSIUM Cl (KCl) 50 ML IV SCH ×2 (21:10→22:05)
[2017-12-25] MEDS: SODIUM BICARBONATE 150 MEQ in D5W 1,000 ML IV SCH (01:16)
[2017-12-25] MEDS: fentaNYL/NACL 100 ML IV SCH ×2 (01:18→17:14)
[2017-12-25] MEDS: PROPOFOL/EMULSION 100 ML IV SCH ×5 (01:21→23:53)
[2017-12-25] MEDS: VECURONIUM BROMIDE 50 MG in D5W 50 ML IV SCH (02:16)
[2017-12-25] MEDS ORDERED: POTASSIUM Cl (KCl) 50 ML IV SCH (02:45)
[2017-12-25] MEDS: RN MUST REMOVE K+ & MG+ PROTOCOL FRM WORKLIST MISC SCH ×2 (07:33→09:46)
[2017-12-25] MEDS: RN MUST ADD CA+ & PHOS PROTOCOL TO WORKLIST MISC SCH ×2 (07:33→09:46)
[2017-12-25] MEDS: LORazepam 2 MG/ML INJ IVP PRN ×3 (07:41→19:55)
[2017-12-25] MEDS: FAMOTIDINE 20 MG/NACL 50 ML IV SCH ×2 (08:17→19:55)
[2017-12-25] MEDS: levETIRAcetam 750 MG in NS 100 ML IV SCH ×2 (08:17→20:44)
[2017-12-25] MEDS: CHLORHEXIDINE GLUCONATE 15 ML UDL PO SCH ×2 (08:17→19:55)
[2017-12-25 08:26] LABS: PLATELET COUNT 114 10^3/uL (150-400)
[2017-12-25 08:34] LABS: INR 0.95 (0.83-1.16); PROTIME(PATIENT) 12.9 SEC (12.0-15.0)
[2017-12-25] MEDS: D50W 25 GM/50 ML SYR IVP PRN ×2 (11:32→16:28)
--- NOTE | 2017-12-25 12:45 | PDINTPN ---
Manufacturing Planner Progress Note Assessment/Plan: Assessment: S/P OOH arrest: Received CPR/meds with ROSC. On HACA since early yesterday morning, now being rewarmed. Anoxic Encephalopathy: ? severity. CT Head initially negative. However, has had myoclonus, which is a poor prognostic finding, suggesting significant diffuse anoxic injury. Seizure is possible, but less likely. Aspiration pneumonia: Patchy infiltrates markedly improved on CXR, good oxygenation. Off antibiotics. Elevated Lactate. Up a bit. ? cause. Reduced EF: 23% on ECHO. Likely acute. BP OK, no signs of CHF. Hypokalemia: Likely due to hypothermia and alkalosis. Plan: Continue rewarming. Reduce vent support. Recheck/follow K+. Check LFTs and CPKs. Follow Lactate. Await neurology evaluation. Discussed with RN, RT, parents. 45 minutes CC time managing ventilator/respiratory status, rewarming process. 12/25/17 12:51 Subjective: Intubated, sedated, paralyzed. Objective: Vital Signs Temp Pulse Resp BP Pulse Ox 34.6 C L 93 20 142/99 H 100 12/25/17 12:00 12/25/17 12:00 12/25/17 12:00 12/25/17 12:00 12/25/17 12:00 Laboratory Results 12/25/17 08:00 12/24/17 12/25/17 12/26/17 05:59 05:59 05:59 Intake Total 1999 4973.0 657 Output Total 1200 2375 1245 Balance 800 2598.0 -588 PT 12.9 SEC (12.0-15.0) 12/25/17 08:00 INR 0.95 (0.83-1.16) 12/25/17 08:00 CXR: Small area of residual infiltrate right mid-lung. Images reviewed by me. Laboratory Tests 12/25/17 08:00 Patient Temperature 37.0 pCO2 26 L pO2 82 H Total CO2 25 ABG pH 7.57 H O2 Concentration % 40 Set Respiration Rate 12 Assist Control YES Tidal Volume 550 PEEP 5 Laboratory Tests 12/25/17 12/25/17 02:18 08:00 ABG Lactic Acid 1.8 H 3.0 H Physical Exam - Physical Exam General Appearance: unresponsive, No alert EENT: normal ENT inspection Neck: normal inspection Respiratory: lungs clear, normal breath sounds Cardiac/Chest: regular rate, rhythm, No edema Abdomen: normal bowel sounds Skin: normal color, warm/dry Extremities: normal inspection Neuro/Psych: other (Paralyzed) ICD10 Worksheet Patient Problems: Problems Problem Status Onset Alcohol intoxication Acute Cardiac arrest Acute Hypokalemia Acute
[2017-12-25 13:00] LABS: CREATINE KINASE 536 IU/L (0-224)
[2017-12-25] MEDS ORDERED: D5W NS 1,000 ML IV SCH (13:00)
--- NOTE | 2017-12-25 13:55 | NEUROPROG ---
Assessment: Spoke to patient's nurse and he has still not been completely rewarmed. Will plan on seeing tomorrow morning. Please call sooner if anything needed. Objective: Vital Signs Temp Pulse Resp BP Pulse Ox 35 C L 96 20 140/89 H 100 12/25/17 13:00 12/25/17 13:00 12/25/17 13:00 12/25/17 13:00 12/25/17 13:00 Laboratory Results 12/25/17 08:00 12/25/17 12:00 12/24/17 12/25/17 12/26/17 05:59 05:59 05:59 Intake Total 1999 4973.0 657 Output Total 1200 2375 1420 Balance 800 2598.0 -763 PT 12.9 SEC (12.0-15.0) 12/25/17 08:00 INR 0.95 (0.83-1.16) 12/25/17 08:00 Allergies/Adverse Reactions: bees Allergy (Intermediate, Uncoded 12/24/17 03:46) swelling
[2017-12-25] MEDS: D10W 1,000 ML IV SCH (16:30)
--- NOTE | 2017-12-25 16:52 | HOSPPROG ---
Hospitalist Progress Note Assessment/Plan: 22yo M with out of hospital cardiac arrest. #Cardiac arrest: Reportedly PEA. ROSC after CPR, epi. Suspect r/t substance abuse (etoh, amphetamines). - HACA protocol, currently being re-warmed #Acute respiratory failure: Intubated for airway protection. Mild resp alkalosis this AM. - Continue lung protective mechanical ventilation, monitor serial ABG, sedation with propofol/fentanyl #Acute encephalopathy: Concern for anoxic brain injury although initial head CT without these findings. Developed myoclonus which is poor prognostic sign. Less likely seizure activity; does not need transfer to center with continuous EEG monitoring at this time - Wean sedation once re-warmed. Neuro eval planned for tomorrow - Despite these are unlikely to be seizures, will continue keppra, PRN ativan #Lactic acidosis: Bumped up to 3 this AM, now improved. Suspect increased RR may have driven this. #Acute aspiration pneumonitis: No leukocytosis. No increase in oxygen needs. - No antibiotics for now #Hypoglycemia: Developed today. Rather persistent. Unclear precipitant. Liver fxn ok. Not e/o systemic infection. - Starting D10NS, monitor q1h BG checks #Cardiomyopathy: Likely stress induced/myocardial stunning from arrest. LVEF 23% , global. Trop mildly elevated. - Monitor volume status, will need repeat TTE in near future, monitor and replete electrolytes - Unlikely to need coronary angiogram #Transaminitis: Mild AST/ALT elevation, likely due to ischemia. Monitor. Diet: NPO GI ppx: H2RA VTE ppx: LMWH Code: full Dispo: Remain inpatient in ICU as critically ill. Discussed and updated patient' s mother and grandmother who are at bedside. Subjective: Ventilated and sedated. Had significant myoclonus yesterday and was started on paralytic. Per mother at bedside, this has significantly improved. Objective: Vital Signs Temp Pulse Resp BP Pulse Ox 35.5 C L 94 16 132/92 H 100 12/25/17 16:00 12/25/17 16:13 12/25/17 16:13 12/25/17 15:00 12/25/17 16:13 Laboratory Results 12/25/17 08:00 12/25/17 12:00 12/24/17 12/25/17 12/26/17 05:59 05:59 05:59 Intake Total 1999 4973.0 699.5 Output Total 1200 2375 1545 Balance 800 2598.0 -845.5 PT 12.9 SEC (12.0-15.0) 12/25/17 08:00 INR 0.95 (0.83-1.16) 12/25/17 08:00 - Physical Exam Constitutional: other (sedated) Eyes: PERRL, anicteric sclera, EOMI Ears, Nose, Mouth, Throat: other (ET tube in place) Cardiovascular: regular rate and rhythym, no murmur, rub, or gallop Respiratory: other (clear anterolaterally with mechanical breath sounds) Gastrointestinal: normoactive bowel sounds, soft, non-tender abdomen, no palpable masses Genitourinary: hooker in urethra Skin: no rashes or abrasions, no fluctuance, no induration Neurologic: other (sedated) ICD10 Worksheet Patient Problems: Problems Problem Status Onset Alcohol intoxication Acute Cardiac arrest Acute Hypokalemia Acute
[2017-12-25] MEDS: VECURONIUM BROMIDE 10 MG VIAL IV PRN ×6 (17:10→23:50)
[2017-12-25] MEDS: methylPREDNISolone SOD SUCC 40 MG/ML VIAL IVP ONE ×2 (20:35→20:40)
[2017-12-25 20:39] LABS: INR 1.24 (0.83-1.16); PROTIME(PATIENT) 15.8 SEC (12.0-15.0)
[2017-12-25] MEDS ORDERED: LORazepam 2 MG/ML INJ IVP ONE (22:34)
[2017-12-25] MEDS ORDERED: MAGNESIUM SULF 2 GM/WATER 50 ML IV ONE (23:11)
[2017-12-25] MEDS ORDERED: PROTOCOL K PHOSPHATE 1 DOSE IV PRN (23:21)
[2017-12-25] MEDS ORDERED: PROTOCOL CALCIUM 1 DOSE IV PRN (23:21)
[2017-12-25] MEDS: POTASSIUM Cl (KCl) 50 ML IV SCH (23:25)
[2017-12-26] MEDS: LORazepam 2 MG/ML INJ IVP PRN ×6 (00:31→17:49)
[2017-12-26] MEDS: PROPOFOL/EMULSION 100 ML IV SCH ×3 (00:53→11:33)
[2017-12-26] MEDS: VECURONIUM BROMIDE 10 MG VIAL IV PRN ×8 (01:06→11:33)
[2017-12-26] MEDS: POTASSIUM Cl (KCl) 50 ML IV SCH (01:09)
[2017-12-26] MEDS ORDERED: POTASSIUM Cl (KCl) 50 ML IV ONE (03:12)
[2017-12-26] MEDS: D10W 1,000 ML IV SCH (03:28)
[2017-12-26] MEDS: fentaNYL/NACL 100 ML IV SCH (05:11)
[2017-12-26] MEDS: CHLORHEXIDINE GLUCONATE 15 ML UDL PO SCH (08:09)
[2017-12-26] MEDS: levETIRAcetam 750 MG in NS 100 ML IV SCH (08:41)
[2017-12-26] MEDS: FAMOTIDINE 20 MG/NACL 50 ML IV SCH (08:56)
[2017-12-26] MEDS ORDERED: ENOXAPARIN 80 MG/0.8 ML SYR SC SCH (09:00)
[2017-12-26 10:29] LABS: INR 1.06 (0.83-1.16)
--- NOTE | 2017-12-26 11:39 | PDINTPN ---
Motor Operator Progress Note Assessment/Plan: Assessment: S/P OOH arrest: Received CPR/meds with ROSC. On HACA since early yesterday morning, now rewarmed. Anoxic Encephalopathy: ? severity. CT Head initially negative. However, has had myoclonus, which is a poor prognostic finding, suggesting significant diffuse anoxic injury. Seizure is possible, but less likely. Aspiration pneumonia: Patchy infiltrates markedly improved on CXR, good oxygenation. Off antibiotics. Elevated Lactate. Up a bit. ? cause. Reduced EF: 23% on ECHO. Likely acute. BP OK, no signs of CHF. Hypokalemia: Likely due to hypothermia and alkalosis. Resolved Hypoglycemia: Improved, but still on D5NS and D10 Plan: Allow temperature to rise above 37. Follow K+, glucose, lactate. EEG and neurology review. Hold paralytic after EEG, then reduce sedation Discussed with RN, RT, parents. 35 minutes CC time managing ventilator/respiratory status, myoclonus 12/26/17 11:39 Subjective: Intubated, sedated, paralyzed Objective: Vital Signs Temp Pulse Resp BP Pulse Ox 37.1 C 95 32 H 134/78 H 97 12/26/17 10:00 12/26/17 11:00 12/26/17 11:00 12/26/17 11:00 12/26/17 11:00 Laboratory Results 12/26/17 07:55 12/26/17 07:55 12/25/17 12/26/17 12/27/17 05:59 05:59 05:59 Intake Total 4973.0 4587.5 Output Total 2375 5220 Balance 2598.0 -632.5 PT 14.0 SEC (12.0-15.0) 12/26/17 08:45 INR 1.06 (0.83-1.16) 12/26/17 08:45 Physical Exam - Physical Exam General Appearance: unresponsive EENT: normal ENT inspection Neck: normal inspection Respiratory: normal breath sounds, No respiratory distress Cardiac/Chest: regular rate, rhythm, No edema Abdomen: normal bowel sounds, non-tender Skin: normal color, warm/dry Extremities: normal inspection Neuro/Psych: other (unresponsive. Diffuse myoclonus) ICD10 Worksheet Patient Problems: Problems Problem Status Onset Alcohol intoxication Acute Cardiac arrest Acute Hypokalemia Acute
--- NOTE | 2017-12-26 12:06 | NEUROPROG ---
Assessment: [id number] - Neurology Consult: - CC: concern for anoxic brain injury following cardiac arrest. - HPI: Pt admitted to [facility] on 12/24/17 after cardiac arrest. Pt has a history of alcohol abuse. He was brought from [facility] after the cardiac arrest. CPR started in field with rhythm reported as PEA. Intubated in ED. UTox positive for amphetamines. Chest x-ray concerning for aspiration pneumonia. Head CT unremarkable. Pt placed on HACA protocol. Completed rewarming on 12/25/17. Pt has had whole body myclonic jerking which is felt to represent severe anoxic brain injury and is a poor prognostic sign. Pt placed on propofol and Keppra but this has not prevented the myoclonus. I initially saw the patient on 12/26/17. Neurologic exam shows patient lying in bed on sedation comatose. Pupils minimally reactive to light but no withdrawal to pain or corneal reflexes. When patient not on a paralytic he has diffuse whole body convulsions consistent with myoclonus. Discussed with family at bedside his poor prognosis. Will obtain EEG and possibly repeat head CT or brain MRI if patient stable. Based on these findings we will meet tomorrow morning and reassess. The family may consider withdrawing care if no improvement is noted at that time. - PMHx: alcohol abuse - SHx: +tobacco FHx: unable to obtain 2/2 to mental status - Labs: 12/24/17- UTox +amphetamine - Rads: 12/24/17- Head CT: normal brain, no acute hemorrhage or global anoxic injury, suspect subacute minimally depressed R zygomatic arch fx, no acute skull fx (I personally visualized the images on 12/25/17) - Assessment: 1. Probable Anoxic Brain Injury following cardiac arrest on 12/24/17: Pt admitted to [facility] on 12/24/17 after cardiac arrest. Pt has a history of alcohol abuse. He was brought from [facility] after the cardiac arrest. CPR started in field with rhythm reported as PEA. Intubated in ED. UTox positive for amphetamines. Chest x-ray concerning for aspiration pneumonia. Head CT unremarkable. Pt placed on HACA protocol. Completed rewarming on 12/25/17. Pt has had whole body myclonic jerking which is felt to represent severe anoxic brain injury and is a poor prognostic sign. Pt placed on propofol and Keppra but this has not prevented the myoclonus. I initially saw the patient on 12/26/17. Neurologic exam shows patient lying in bed on sedation comatose. Pupils minimally reactive to light but no withdrawal to pain or corneal reflexes. When patient not on a paralytic he has diffuse whole body convulsions consistent with myoclonus. Discussed with family at bedside his poor prognosis. Will obtain EEG and possibly repeat head CT or brain MRI if patient stable. Based on these findings we will meet tomorrow morning and reassess. The family may consider withdrawing care if no improvement is noted at that time. - 2. Cardiac Arrest: Unclear cause, ICU and hospitalist investigating cause - Plan: - EEG ordered STAT and discussed with oxygen equipment technician - Consider brain MRI or head CT after EEG to help with prognosis - Continue Keppra 500 mg bid - Agree with continued propofol in case the myoclonus is epileptic seizures however typically myoclonus from anoxic brain injury is a poor prognostic sign and prognosis does not improve with seizure medication - 60 min of critical care time spent on patient to include active managment of ongoing myoclonus and ordering STAT EEG and coordinating with oxygen equipment technician and nurse and hospitalist Objective: Vital Signs Temp Pulse Resp BP Pulse Ox 37.1 C 90 12 134/78 H 98 12/26/17 10:00 12/26/17 12:00 12/26/17 12:00 12/26/17 11:00 12/26/17 12:00 Laboratory Results 12/26/17 07:55 12/26/17 07:55 12/25/17 12/26/17 12/27/17 05:59 05:59 05:59 Intake Total 4973.0 4587.5 Output Total 2375 5220 400 Balance 2598.0 -632.5 -400 PT 14.0 SEC (12.0-15.0) 12/26/17 08:45 INR 1.06 (0.83-1.16) 12/26/17 08:45 Allergies/Adverse Reactions: bees Allergy (Intermediate, Uncoded 12/24/17 03:46) swelling
[2017-12-26] MEDS ORDERED: levETIRAcetam 1000MG/NACL 100 ML IV SCH (12:30)
--- NOTE | 2017-12-26 12:39 | CPEEG ---
DATE OF STUDY: 12/26/2017 INTERPRETATION: This EEG is very abnormal due to the presence of continuous generalized periodic epileptiform discharges (GPEDs). This EEG pattern, in the setting of post cardiac arrest, is consistent with severe, diffuse encephalopathy. REPORT: This EEG done in the ICU shows nearly continuous moderate-amplitude generalized, periodic epileptiform discharges (GPEDs) composed of generalized sharp waves occurring typically at 4 hertz throughout the recording. There is minimal variability or reactivity noted during the tracing. This EEG pattern, in the setting of post cardiac arrest, is consistent with severe, diffuse encephalopathy. /[id number]/MODL MTDD
--- NOTE | 2017-12-26 12:40 | NEUROPROG ---
Assessment: EEG showed Generalized Periodic Epileptiform Discharges. This is likely from an anoxic brain injury and carries a very poor prognosis. However, given his young age I think it is not unreasonable to try aggressive treatment of these with seizure medication. This will require continuous EEG monitoring so we will need to transfer to a facility with those capabilities (likely [facility] in [place]). I will also increase Keppra 750 mg bid to 1000 mg bid immediately. I attempted to call his mother and grandmother at the phone numbers they left with the nurse but was not able to reach them. I left a message to call me back. The nurse in the ICU noted there was on decision maker at the patient's bedside. I will contact the hospitalist with my recommendations. Objective: Vital Signs Temp Pulse Resp BP Pulse Ox 37.1 C 89 30 H 131/67 H 100 12/26/17 12:00 12/26/17 12:00 12/26/17 12:00 12/26/17 12:00 12/26/17 12:00 Laboratory Results 12/26/17 07:55 12/26/17 07:55 12/25/17 12/26/17 12/27/17 05:59 05:59 05:59 Intake Total 4973.0 4587.5 Output Total 2375 5220 550 Balance 2598.0 -632.5 -550 PT 14.0 SEC (12.0-15.0) 12/26/17 08:45 INR 1.06 (0.83-1.16) 12/26/17 08:45 Allergies/Adverse Reactions: bees Allergy (Intermediate, Uncoded 12/24/17 03:46) swelling
[2017-12-26] MEDS ORDERED: LORazepam 2 MG/ML INJ IVP ONE (12:48)
--- NOTE | 2017-12-26 12:59 | HOSPPROG ---
Hospitalist Progress Note Assessment/Plan: 22yo M with out of hospital cardiac arrest. #Status epilepticus: Demonstrated on EEG here. Very poor prognostic sign. - Neurology (Dr Hood) discussed with family and they are agreeable transfer to center with cEEG monitoring - Will call [facility] for transfer - Increased keppra 750 -> 1000mg BID, continue propofol, prn ativan #Acute encephalopathy: Seizures which are likely precipitated by anoxic brain injury. Poor prognosis. - Management as above #Cardiac arrest: Reportedly PEA. ROSC after CPR, epi. Suspect r/t substance abuse (etoh, amphetamines). - HACA protocol, re-warmed 10pm on 12/25 #Acute respiratory failure: Intubated for airway protection. - Continue lung protective mechanical ventilation, monitor serial ABG, sedation with propofol/fentanyl #Lactic acidosis: Likley r/t seizure activity. Resolved as of now. #Acute aspiration pneumonitis: No leukocytosis. No increase in oxygen needs. - No antibiotics for now #Hypoglycemia: Developed today. Rather persistent. Unclear precipitant. Liver fxn ok. Not e/o systemic infection. - Starting D10NS, monitor q1h BG checks #Cardiomyopathy: Likely stress induced/myocardial stunning from arrest. LVEF 23% , global. Trop mildly elevated. - Monitor volume status, will need repeat TTE in near future, monitor and replete electrolytes - Unlikely to need coronary angiogram #Transaminitis: Mild AST/ALT elevation, likely due to ischemia. Monitor. Diet: NPO GI ppx: H2RA VTE ppx: LMWH Code: full Dispo: Plan to transfer to [facility] for management of seizures and continuous EEG. Subjective: Rewarmed last night around 10pm. Developed worsening "shaking" and myoclonus this morning. Got additional paralytic, ativan. Objective: Vital Signs Temp Pulse Resp BP Pulse Ox 37.1 C 89 30 H 131/67 H 100 12/26/17 12:00 12/26/17 12:00 12/26/17 12:00 12/26/17 12:00 12/26/17 12:00 Laboratory Results 12/26/17 07:55 12/26/17 07:55 12/25/17 12/26/17 12/27/17 05:59 05:59 05:59 Intake Total 4973.0 4587.5 Output Total 2375 5220 550 Balance 2598.0 -632.5 -550 PT 14.0 SEC (12.0-15.0) 12/26/17 08:45 INR 1.06 (0.83-1.16) 12/26/17 08:45 - Physical Exam Constitutional: other (whole body convulsions) Eyes: PERRL, anicteric sclera, EOMI Ears, Nose, Mouth, Throat: other (ET tube in place) Cardiovascular: no murmur, rub, or gallop, tachycardia, edema Respiratory: other (mechanical and clear breath sounds anterolaterally) Gastrointestinal: soft, non-tender abdomen Genitourinary: hooker in urethra Neurologic: other (sedated, rhythmic diffuse convulsions ) ICD10 Worksheet Patient Problems: Problems Problem Status Onset Alcohol intoxication Acute Cardiac arrest Acute Hypokalemia Acute
--- NOTE | 2017-12-26 14:37 | ASMTCMCOM ---
CM Note CM Note Notes: Hospitalist is making arrangements to have patient be admitted to [facility] due to continuous seizures. The patient's chart has been copied, images have been copied. Waiting for a bed at [facility] before transport can be set up. Date Signed: 12/26/2017 02:36 PM Electronically Signed By:Marah Sharp LCSW
--- NOTE | 2017-12-26 15:50 | PDDCSUM ---
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 Status epilepticus, likely due to 2. Anoxic brain injury sustained during 3. PEA cardiac arrest s/p ROSC, complicated by 4. Acute respiratory failure 5. Lactic acidosis 6. Stress cardiomyopathy 7. Transaminitis 8. Aspiration pneumonitis 9. Hypoglycemia Brief Hospital Course by Problem: 22yo M with out of hospital cardiac arrest. #Status epilepticus: Demonstrated on spot EEG here. Very poor prognostic sign. Neurology (Dr Justin Hood) discussed with family and they are agreeable transfer to center with cEEG monitoring for management of this ([facility] ). Increased keppra 750->1000mg BID, continue propofol infusion, using PRN lorazepam for abortive therapy. The patient's mother and grandmother have been very involved in his care. #Suspected anoxic brain injury: Management per above. #Cardiac arrest: Reportedly PEA. ROSC after CPR, epix2 but unclear amount of down time (supposedly <5 minutes). Suspect r/t substance abuse (etoh, amphetamines). Friends who he was prior to event did not see him ingest anything other than etoh. Initiated on HACA protocol, rewarmed 10pm on 12/25. Has triple lumen cooling catheter in left groin that can be removed after 10pm on 12/26 per our protocol. #Acute respiratory failure: Intubated for airway protection. Continue lung protective mechanical ventilation, monitor serial ABG, sedation with propofol/ fentanyl. #Lactic acidosis: Likley r/t seizure activity. Resolved as of discharge. #Acute aspiration pneumonitis: No leukocytosis. No increase in oxygen needs. Not on antibiotics. #Hypoglycemia: Initially hyperglycemic on arrival. Rather persistent requiring dextrose infusion. Unclear precipitant. Liver fxn ok. Not e/o systemic infection. #Cardiomyopathy: Likely stress induced/myocardial stunning from arrest. LVEF 23% , global. Trop mildly elevated. Appears euvolemic. Will need repeat TTE in near future, monitor and replete electrolytes. Unlikely to need coronary angiogram. #Transaminitis: Mild AST/ALT elevation, likely due to ischemia. Monitor. Medications: Levetiracetam 1000mg IV BID, Ativan IV PRN, Propofol infusion at 50 /hr, Famotidine 20mg IV BID, Fentanyl infusion, D10W at 50ml/hr, D5NS at 100ml/ hr. Physical Exam: Vitals reviewed - afebrile, HR 90-100s, SBP 100-120s. Ventilator settings: 40% fio2, 5 PEEP, Tv 500mL, RR 12. Intermittent convulsive activity that is aborted with IV benzodiazepine. Heart without murmur. Lungs clear anterolaterally. Abdomen soft. No lower extremity edema. Sedated with ET tube and hooker in place.
--- NOTE | 2017-12-26 16:56 | ASMTDCNOTE ---
Case Management Discharge Discharge Order Complete? Answers: Yes Patient to Obtain Answers: Other Notes: [facility] Medications Transportation Arranged Answers: [facility] will Pick (Date 12/26/2017 07:00 PM & Time) EMTALA Complete Answers: Yes Case Management Transport Answers: Yes Form Complete Faxed Final Orders Answers: No Notes: Patient records went wi th patient Agency/Facility Transfer Answers: Yes Report Printed & Faxed to Receiving Agency Discharge Comments Notes: Patient has been transferred to [facility] due to constant sz. Date Signed: 12/26/2017 04:55 PM Electronically Signed By:Marah Sharp LCSW
--- NOTE | 2017-12-26 16:58 | ASDISCHSUM ---
Discharge Information Plan Status:Acute Transfer Medically Cleared to Leave:12/26/2017 Discharge Date:12/26/2017 CM D/C Disposition:[facility] ADT D/C Disposition: Projected Discharge Date:12/26/2017 06:00 PM Transportation at D/C:ALS/BLS Discharge Delay Reason: Follow-Up Date:12/26/2017 06:00 PM Discharge Slot:2 - 12:01 pm - 18:00 pm Final Diagnosis:ETOH, Cardiac arrest Placement Information Patient Contact Information Contact Name:EBONIEAleida Relationship:Grandparent Address: City: [place] Phone: [facility] [address]/Zip Code: Email: Financial Information Financial Class:Medicaid Primary Plan Desc:[employer] [place] Primary Plan Number:[id number] Secondary Plan Desc: Secondary Plan Number: Assessment Information LACE LACE Length of stay for Answers: 2 days current admission Acuity / Level of Answers: Yes Care: Did the patient have an inpatient admission? Comorbidities - select Answers: Other Notes: cardiac arrest all that apply # of Emergency department Answers: 1-2 visits in the last 6 months Social determinants Answers: History of substance abuse (ETOH, street drugs, prescription drugs, etc.) Score: 10 Date Signed: 12/24/2017 05:28 PM Electronically Signed By:Marah Sharp LCSW [facility] Progress Note CM Note CM Note Notes: Patient admitted from the [facility] after ETOH W/D and Cardiac arrest. Patient was administered CPR and placed on a vent. Grandmother felt that patient was using his roommates medications and that's why he had a + meth screen. CM to follow for possible discharge needs. Date Signed: 12/24/2017 05:34 PM Electronically Signed By:Marah Sharp LCSW [facility] CM Progress Note CM Note CM Note Notes: Hospitalist is making arrangements to have patient be admitted to [facility] due to continuous seizures. The patient's chart has been copied, images have been copied. Waiting for a bed at [facility] before transport can be set up. Date Signed: 12/26/2017 02:36 PM Electronically Signed By:Marah Sharp LCSW Case Management Discharge Plan Note Case Management Discharge Discharge Order Complete? Answers: Yes Patient to Obtain Answers: Other Notes: [facility] Medications Transportation Arranged Answers: [facility] will Pick (Date 12/26/2017 07:00 PM & Time) MELCHOR Complete Answers: Yes Case Management Transport Answers: Yes Form Complete Faxed Final Orders Answers: No Notes: Patient records went wi patient Agency/Facility Transfer Answers: Yes Report Printed & Faxed to Receiving Agency Discharge Comments Notes: Patient has been transferred to [facility] due to constant sz. Date Signed: 12/26/2017 04:55 PM Electronically Signed By:Marah Sharp LCSW Intervention Information
[2017-12-26 18:04] VITALS: BP 105/53
== END 2017-12-26 18:12 | disposition short-term general hospital (02) | DRG 196 ==
LOC: F2N 05:29
PROVIDERS: ADMIT Student in an Organized Health Care Education/Training Program; ATTEND Student in an Organized Health Care Education/Training Program
PROC: 0BH18EZ Insertion of Endotracheal Airway into Trachea, Via Natural or Artificial Opening Endoscopic (ICD-10-PCS; principal; 2017-12-24)
PROC: 5A1945Z Respiratory Ventilation, 24-96 Consecutive Hours (ICD-10-PCS; principal; 2017-12-24)
DX: I46.9 Cardiac arrest, cause unspecified (principal); F10.229 Alcohol dependence with intoxication, unspecified; F15.90 Other stimulant use, unspecified, uncomplicated; J96.01 Acute respiratory failure with hypoxia; J69.0 Pneumonitis due to inhalation of food and vomit; G93.1 Anoxic brain damage, not elsewhere classified; G40.901 Epilepsy, unspecified, not intractable, with status epilepticus; E87.6 Hypokalemia; R73.9 Hyperglycemia, unspecified; N17.9 Acute kidney failure, unspecified; R74.0 Nonspecific elevation of levels of transaminase and lactic acid dehydrogenase [LDH]; E87.2 Acidosis
CPT/HCPCS: 80305; 82435-PO; 82565-PO; 82947-PO; 82947-QW; 83605-PO; 84132-PO; 84295-PO; 84484-PO; 84520-PO; 85014-PO; 96374; G0480; J1815; J1953; J2060; J2310; J2704; J2920; J3010; J3475; J3480; Q9967